=== PATIENT | male | born 1945 | race Caucasian/White ===

== ENCOUNTER 2018-12-22 13:39 | Emergency (ER) | payer MEDICARE, BC ==
--- NOTE | 2018-12-22 14:32 | EDM.PDOC ---
ED HPI GENERAL MEDICAL PROBLEM - General Chief Complaint: General Stated Complaint: dizzy Time Seen by Provider: 12/22/18 13:45 Source of Information: Reports: Patient History Limitations: Reports: No Limitations - History of Present Illness INITIAL COMMENTS - FREE TEXT/NARRATIVE: This patient is a 73 year old male that presents to the ER. Patient has no medical history. He has not seen a doctor in over 15 years. Patient has son at bedside. Patient reports that he was at home helping cook and about to go to a graduation, when he was walking and suddenyl felt dizzy, diaphoretic, pale, nauseated and felt like he was going to pass out. Patient reports that he lowered self with assistance. Patient reports he then vomited x1. Patient reports upon arrival he still felt dizzy, especially with positional changes. Patient upon arrival is HTN. Patient denies evans, d, f, congestion, drainage, cough, abd pain, back pain, urinary changes. Onset: Today Onset Date: 12/22/18 Severity: Moderate Improves with: Reports: Rest Worsens with: Reports: Movement Associated Symptoms: Reports: Diaphoresis, Nausea/Vomiting, Syncope (Near), Weakness (generally) Treatments SUPPLY AIDE: Reports: Other (see below) (lanre landa) - Related Data Allergies Allergy/AdvReac Type Severity Reaction Status Date / Time No Known Allergies Allergy Verified 12/22/18 13:43 Home Meds: Home Meds Cholecalciferol (Vitamin D3) [Vitamin D3] 1,000 units PO DAILY 12/22/18 [History ] Past Medical History - Past Health History Medical/Surgical History: Denies Medical/Surgical History Social & Family History - Family History Family Medical History: Noncontributory - Tobacco Use Smoking Status *Q: Never Smoker - Caffeine Use Caffeine Use: Reports: Coffee, Soda - Recreational Drug Use Recreational Drug Use: No ED ROS GENERAL - Review of Systems Review Of Systems: See Below Constitutional: Reports: No Symptoms HEENT: Reports: No Symptoms Respiratory: Reports: No Symptoms Cardiovascular: Reports: Blood Pressure Problem, Lightheadedness, Syncope (near) . Denies: Chest Pain Endocrine: Reports: No Symptoms GI/Abdominal: Reports: Nausea, Vomiting (x1 post episode) : Reports: No Symptoms Musculoskeletal: Reports: No Symptoms Skin: Reports: Diaphoresis Neurological: Reports: Dizziness Psychiatric: Reports: No Symptoms Hematologic/Lymphatic: Reports: No Symptoms Immunologic: Reports: No Symptoms ED EXAM, GENERAL - Physical Exam Exam: See Below Exam Limited By: No Limitations General Appearance: Alert, WD/WN, No Apparent Distress, Anxious Eye Exam: Bilateral Eye: EOMI, Normal Inspection, PERRL Ears: Normal External Exam, Normal Canal, Hearing Grossly Normal, Normal TMs Ear Exam: Bilateral Ear: Auricle Normal, Canal Normal, TM normal Nose: Normal Inspection, Normal Mucosa, No Blood Throat/Mouth: Normal Inspection, Normal Lips, Normal Teeth, Normal Gums, Normal Oropharynx, Normal Voice, No Airway Compromise Head: Atraumatic, Normocephalic Neck: Normal Inspection, Supple, Non-Tender, Full Range of Motion Respiratory/Chest: No Respiratory Distress, Lungs Clear, Normal Breath Sounds, No Accessory Muscle Use, Chest Non-Tender Cardiovascular: Normal Peripheral Pulses, Regular Rate, Rhythm, No Edema, No Gallop, No JVD, No Murmur, No Rub Peripheral Pulses: 2+: Radial (L), Radial (R), Posterior Tibial (L), Posterior Tibial (R), Dorsalis Pedis (L), Dorsalis Pedis (R) GI/Abdominal: Normal Bowel Sounds, Soft, Non-Tender, No Organomegaly, No Distention, No Abnormal Bruit, No Mass (Male) Exam: Deferred Rectal (Males) Exam: Deferred Back Exam: Normal Inspection, Full Range of Motion Extremities: Normal Inspection, Normal Range of Motion, Non-Tender, No Pedal Edema, Normal Capillary Refill Neurological: Alert, Oriented, CN II-XII Intact, Normal Cognition, Normal Gait, No Motor/Sensory Deficits, Other (Stroke Score 0. GCS 15. ) Psychiatric: Normal Affect, Normal Mood Skin Exam: Warm, Dry, Intact, Normal Color, No Rash Lymphatic: No Adenopathy EKG INTERPRETATION EKG Date: 12/22/18 Time: 13:59 Rhythm: NSR Rate (Beats/Min): 92 ST-T: Normal ME/PQ Interval: Prolonged Comparison: NA - No Prior EKG Course - Vital Signs Last Recorded V/S: Last Vital Signs Temp 99.2 F 12/22/18 16:27 Pulse 72 12/22/18 16:27 Resp 14 12/22/18 16:27 BP 164/88 H 12/22/18 16:27 Pulse Ox 96 12/22/18 16:27 Orthostatic Blood Pressure [ 198/109 Standing] Orthostatic Blood Pressure [ 188/84 Sitting] Orthostatic Blood Pressure [ 194/98 Supine] - Orders/Labs/Meds Orders: Active Orders 24 hr Category Date Time Status Cardiac Monitoring [RC] . DIRECTED Care 12/22/18 13:57 Active Orthostatic Vital Signs [RC] ASDIRECTED Care 12/22/18 13:58 Active Chest 2V [CR] Stat Exams 12/22/18 13:56 Taken Head wo Cont [CT] Routine Exams 12/22/18 Taken Sodium Chloride 0.9% [Normal Saline] 500 ml Med 12/22/18 14:15 Active IV .BOLUS Medication Orders Sodium Chloride (Normal Saline) 500 mls @ 500 mls/hr IV .BOLUS JEOVANNY Last Admin: 12/22/18 14:46 Dose: 500 mls/hr Labs: Laboratory Tests 12/22/18 12/22/18 12/22/18 Range/Units 13:56 13:56 15:46 WBC 6.3 (5.0-10.0) 10^3/uL RBC 4.40 L (4.50-6.00) 10^6/uL Hgb 12.7 L (14.0-18.0) g/dL Hct 37.7 L (40.0-54.0) % MCV 85.7 (82.0-94.0) fL MCH 28.9 (27.0-32.0) pg MCHC 33.7 (33.0-38.0) g/dL RDW Coeff of [place] 13.2 (11.0-15.0) % Plt Count 245 (150-400) 10^3/uL Neut % (Auto) 62.8 (35-85) % Lymph % (Auto) 27.0 (10-55) % [place] % (Auto) 7.8 (0-16) % Eos % (Auto) 1.4 (0-5) % Baso % (Auto) 1.0 (0-3) % Neut # (Auto) 3.92 (1.80-7.00) 10^3/uL Lymph # (Auto) 1.69 (1.00-4.80) 10^3/uL [place] # (Auto) 0.49 (0.00-0.80) 10^3/uL Eos # (Auto) 0.09 (0.00-0.45) 10^3/uL Baso # (Auto) 0.06 10^3/uL Sodium 139 (136-145) mEq/L Potassium 3.8 (3.5-5.0) mEq/L Chloride 103 (98-106) mEq/L Carbon Dioxide 28 (21-32) mmol/L BUN 18 (7-18) mg/dL Creatinine 1.1 (0.7-1.3) mg/dL Est Cr Clr Drug Dosing 58.73 mL/min Estimated GFR (MDRD) > 60 (>=60) mL/min Glucose 167 H (75-99) mg/dL Calcium 8.7 (8.4-10.1) mg/dL Total Bilirubin 0.6 (0.0-1.0) mg/dL AST 13 L (15-37) U/L ALT 15 (12-78) U/L Alkaline Phosphatase 61 (46-116) U/L Creatine Kinase 70 (35-232) U/L Troponin I < 0.017 (0.00-0.06) ng/mL NT-Pro-B Natriuret Pep 222 (0-1000) pg/mL Total Protein 6.9 (6.4-8.2) g/dL Albumin 3.3 L (3.4-5.0) g/dL Urine Color Yellow (YELLOW) Urine Appearance Clear (CLEAR) Urine pH 7.0 (4.5-8.0) Ur Specific [place] 1.020 (1.003-1.020) Urine Protein Negative (NEGATIVE) mg/dL Urine Glucose (UA) Negative (NEGATIVE) mg/dL Urine Ketones Negative (NEGATIVE) mg/dL Urine Occult Blood Negative (NEGATIVE) Urine Nitrite Negative (NEGATIVE) Urine Bilirubin Negative (NEGATIVE) Urine Urobilinogen 0.2 (0.2-1.0) EU/dL Ur Leukocyte Esterase Negative (NEGATIVE) Urine RBC Not seen (0-5) /HPF Urine WBC Not seen (0-5) /HPF Meds: Medications Generic Name Dose Route Start Last Admin Trade Name Freq PRN Reason Stop Dose Admin Sodium Chloride 500 mls @ 500 mls/hr 12/22/18 14:15 12/22/18 14:46 Normal Saline IV 500 mls/hr .BOLUS JEOVANNY Administration Discontinued Medications Generic Name Dose Route Start Last Admin Trade Name Freq PRN Reason Stop Dose Admin Aspirin 324 mg 12/22/18 15:25 12/22/18 15:32 Aspirin PO 12/22/18 15:26 324 mg ONETIME ONE Administration Labetalol HCl 20 mg 12/22/18 15:44 12/22/18 16:03 Normodyne IVPUSH 12/22/18 15:45 20 mg ONETIME ONE Administration Protocol - Radiology Interpretation Free Text/Narrative:: Head CT: Discussed with radiologist: Negative. CXR: No cardiomegaly, no pulmonary edema, no infiltrates. CT Results Date: 12/22/18 CT Results Time: 14:46 - Re-Assessments/Exams Free Text/Narrative Re-Assessment/Exam: 12/22/18 14:37 Patient recheck BP now is 178/91, HR 92. Will await results at this time. 12/22/18 15:36 I spoke with Dolly about the patient. Patient is Acute coronary syndrome until proven otherwise. Will give ASA and transfer patient. A this time, no recommended treating HTN. 12/22/18 15:36 Spoke to patient and son at bedside. Discussed risk factors of staying in [place], agree to transfer to [facility]. 12/22/18 15:[address] Elkins hospitalist at [facility]. He recommends treating BP, to get a 20% BP reduction. He would like me to give medication to treat his HTN , believes symptms are related to his BP. I will give Lebetalol, this is available in ER for HTN tx. 12/22/18 15:57 BP currently 193/94, HR 94 prior to medication. 12/22/18 16:43 BP now is 166/80, HR 68. Patient reports he feels good, no complaints or symptoms. Departure - Departure Time of Disposition: 15:36 Disposition: DC/Tfer to Acute Hospital 02 Condition: Fair Clinical Impression: Lightheaded, Acute coronary syndrome Hypertension Qualifiers: Hypertension type: essential hypertension Qualified Code(s): I10 - Essential ( primary) hypertension - Discharge Information *PRESCRIPTION DRUG MONITORING PROGRAM REVIEWED*: Not Applicable *COPY OF PRESCRIPTION DRUG MONITORING REPORT IN PATIENT SOLO: Not Applicable Referrals: PCP,Unknown [Primary Care Provider] - Forms: ED Department Discharge - My Orders Last 24 Hours: My Active Orders 12/22/18 Head wo Cont [CT] Routine 12/22/18 13:56 Chest 2V [CR] Stat 12/22/18 13:57 Cardiac Monitoring [RC] . DIRECTED 12/22/18 13:58 Orthostatic Vital Signs [RC] ASDIRECTED 12/22/18 14:15 Sodium Chloride 0.9% [Normal Saline] 500 ml IV .BOLUS - Assessment/Plan Last 24 Hours: My Active Orders 12/22/18 Head wo Cont [CT] Routine 12/22/18 13:56 Chest 2V [CR] Stat 12/22/18 13:57 Cardiac Monitoring [RC] . DIRECTED 12/22/18 13:58 Orthostatic Vital Signs [RC] ASDIRECTED 12/22/18 14:15 Sodium Chloride 0.9% [Normal Saline] 500 ml IV .BOLUS Plan: PLEASE SEE RN NOTE FOR PFSH. Transferring patient to [facility]. [facility] verses benfits explained to patient includes risk of transfer are MVC, , cardiac arrest, [place]. The risks of staying in [place] are , [place], cardaic arrest, stroke, HTN continues. The benefits of staying in [place] are close to home. The benefits of going to [place] are speciality care of material damage adjuster, interventions if needed, higher level of care.
[2018-12-22] MEDS: Sodium Chloride 0.9% 500 ML IV SCH (14:46)
[2018-12-22 14:52] LABS: CHLORIDE,CL 103 mEq/L (98-106); SODIUM,NA 139 mEq/L (136-145)
[2018-12-22] MEDS: Aspirin 81 MG Tab.Chew PO ONE (15:32)
[2018-12-22] MEDS: Labetalol 100 MG/20 ML MDV IVPUSH ONE (16:03)
== END 2018-12-22 17:16 ==
LOC: CC.ED 13:39
DX: I24.9 Acute ischemic heart disease, unspecified (principal); I10 Essential (primary) hypertension; Z79.899 Other long term (current) drug therapy
CPT/HCPCS: 36415; 70450; 71046; 80053; 81001; 82550; 83880; 84484; 85025; 93005; 96361; 96374; 99285; A9270; J3490; J7040